=== PATIENT | male | born 1955 | race Caucasian/White ===

== ENCOUNTER 2016-08-24 12:43 | Inpatient (IN) | payer OTHER ==
--- NOTE | 2016-08-23 14:28 | GHP ---
[f rep st] PREOP HISTORY AND PHYSICAL DATE OF ADMISSION: 08/24/2016 PROBLEM: Severe right hip degenerative osteoarthritis. HISTORY OF PRESENT ILLNESS: The patient is a 61-year-old male who will be admitted for a right tota l hip arthroplasty with Dr. Houston at the [facility] on August 24, 2016. The patient has had progressive right hip pain for 2 years. He now has both pain at night and during the day. It is painful with activities and his activities have become limited secondary to his right hip pain . He will use the ibuprofen on occasion, which has not worked as effectively as it has in the past. He has difficulties putting on his shoes and socks on the right side. He did some yoga therapy wi thout improvement. No previous cortisone injection or right hip surgery. Because of his progressiv e pain and recalcitrant response to conservative measures, the patient has elected to proceed with a right total hip arthroplasty. PAST MEDICAL HISTORY: Noncontributory. He has no history of DVT, PE, ME, CAD, hepatitis, or MRSA i nfection. CURRENT MEDICATIONS: Magnesium supplement, glucosamine/chondroitin sulfate supplement, and Advil. MEDICATION ALLERGIES: None. He believes he had an adverse reaction to Pentothal as a child. SOCIAL HISTORY: The patient is a nonsmoker. Occasional alcohol use. He is . 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 His activities include recumb ent biking and walking. FAMILY HISTORY: Noncontributory. PHYSICAL EXAMINATION: GENERAL: He is an otherwise healthy-appearing 61-year-old male. VITALS: Height 6 feet, 0 inches tall, weight 210 pounds, BMI 28.5. HEENT: Head is normocephalic, atraumatic. Eyes are PERRLA. Conjunctivae and sclerae are clear. M outh: He has good oral hygiene without any loose teeth. LUNGS: Clear. HEART: Regular rate and rhythm without murmurs, gallops, or rubs. EXTREMITIES: Pertinent findings are limited to the patient's right hip. He has full hip extension, 80 degrees of flexion, with a 20-degree external rotation flexion contracture. 0 degrees of development intern al rotation. He has about 15 degrees of external rotation and 20 degrees of abduction. DIAGNOSTIC IMAGING: Recent x-rays taken of the patient's right hip show severe [id number] arthrit is. He has large peripheral osteophyte formation and increased subchondral sclerosis. IMPRESSION ON ADMISSION: Severe right hip degenerative osteoarthritis. PLAN: The plan will be for the patient to undergo a right total hip arthroplasty with Dr. Houston at the [facility] on August 24, 2016. The surgery has been described to the patient inc luding the risks, benefits, and expectations. He understands the risk of sciatic nerve injury, infe ction, hip dislocation, and/or leg length inequality. He also understands the possible need for fut ure revision surgery. All his questions have been answered and he consents to surgery here in the o ffice today. Copy requested to: Dr. Vivien Perez /[id number]/MODL
[2016-08-24] MEDS ORDERED: LIDOCAINE 1% 2 ML INJ ONE (13:21)
[2016-08-24] MEDS ORDERED: CHLORHEXIDINE GLUC HIBICLENS 118 ML BTL TP ONE (14:00)
[2016-08-24] MEDS ORDERED: ACETAMINOPHEN 325 MG TAB PO ONE (14:00)
[2016-08-24] MEDS ORDERED: POVIDONE-IODINE 20 ML in SODIUM CL IRRIG SOLUTION 500 ML IRR ONE (14:00)
[2016-08-24] MEDS ORDERED: TRANEXAMIC ACID IV ONE (14:00)
[2016-08-24] MEDS ORDERED: CEFAZOLIN 2 GM/DEXTR 100 ML IV ONE (14:00)
[2016-08-24] MEDS ORDERED: NS IV ONE (14:00)
[2016-08-24] MEDS ORDERED: DEXAMETHASONE 4 MG/ML VIAL IVP ONE (14:00)
[2016-08-24] MEDS ORDERED: FAMOTIDINE 20 MG TAB PO ONE (14:00)
[2016-08-24] MEDS ORDERED: ROPI/epiNEPH/KETOROLAC JOINT COCKTAIL IU ONE (14:00)
--- NOTE | 2016-08-24 14:11 | PDHPUP ---
History & Physical Update H&P update statement: This history and physical update is based on an assessment of the patient which was completed after admission or registration (within 24 hours), but prior to the surgery/procedure. H&P update: H&P reviewed & patient examined, no change in patient's condition since H&P completed
[2016-08-24] MEDS ORDERED: LR 1,000 ML IV ONE (14:20)
[2016-08-24] MEDS ORDERED: ceFAZolin 1 GM/5 ML SYR ONE (14:27)
[2016-08-24] MEDS ORDERED: MIDAZOLAM 2 MG/2 ML VIAL IVP ONE ×2 (14:49→14:53)
--- NOTE | 2016-08-24 14:49 | PDANEPAE ---
ANE Past Medical History Past Medical History: 61 year old with right hip arthritis for right JULIAN Pt reports one episodeof "global amnesia" in July 2015. Neuro work up negative. Ripley to be stress induced - Cardiovascular History Hx Hypertension: No Hx Arrhythmias: No Hx Chest Pain: No Hx Coronary Artery / Peripheral Vascular Disease: No Hx CHF / Valvular Disease: No Hx Palpitations: No - Pulmonary History Hx COPD: No Hx Asthma/Reactive Airway Disease: No Hx Recent Upper Respiratory Infection: No Hx Oxygen in Use at Home: No - Neurologic History Hx Cerebrovascular Accident: No Hx Seizures: No Hx Dementia: No - Endocrine History Hx Diabetes: No - Renal History Hx Renal Disorders: No - Liver History Hx Hepatic Disorders: No - Neurological & Psychiatric Hx Hx Neurological and Psychiatric Disorders: No - Cancer History Hx Cancer: No - Congenital Disorder History Hx Congenital Disorders: No - GI History Hx Gastrointestinal Disorders: No - Chronic Pain History Chronic Pain: Yes (RT HIP) ANE Review of Systems Review of systems is: negative - Exercise capacity METS (RN): 4 METS ANE Patient History - Allergies Allergies/Adverse Reactions: wheat Allergy (Verified 08/20/16 14:26) - Home Medications Home Medications: Herbals/Supplements -Info Only 1 ea PO DAILY 07/30/15 [Last Taken Unknown] Ibuprofen [Motrin (*)] 200 mg PO DAILY PRN 08/20/16 [Last Taken Unknown] - NPO status NPO Since - Liquids (Date): 08/24/16 NPO Since - Liquids (Time): 11:30 NPO Since - Solids (Date): 08/23/16 NPO Since - Solids (Time): 20:00 - Smoking Hx Smoking Status: Never smoked - Family Anes Hx Family Hx Anesthesia Complications: NEG ANE Labs/Vital Signs - Vital Signs Blood Pressure: 114/84 Heart Rate: 65 Respiratory Rate: 14 O2 Sat (%): 96 Height: 182.88 cm Weight: 95.254 kg ANE Physical Exam - Airway Mallampati Score: Class 1 Mouth exam: normal dental/mouth exam - Pulmonary Pulmonary: no respiratory distress - Cardiovascular Cardiovascular: regular rate and rhythym - ASA Status ASA Status: II ANE Anesthesia Plan Anesthesia Plan: spinal
[2016-08-24] MEDS ORDERED: MIDAZOLAM 2 MG/2 ML VIAL ONE (14:54)
[2016-08-24] MEDS ORDERED: fentaNYL 100 MCG/2 ML INJ ONE (15:19)
[2016-08-24] MEDS ORDERED: PROPOFOL/EMULSION 500 MG/50 ML BOTTLE IV ONE ×2 (15:19→16:22)
[2016-08-24] MEDS ORDERED: NALOXONE HCL 0.4 MG/ML INJ IVP PRN (16:32)
[2016-08-24] MEDS ORDERED: PROMETHAZINE HCL 25 MG/ML INJ IVP PRN ×2 (16:32→17:02)
[2016-08-24] MEDS ORDERED: fentaNYL 100 MCG/2 ML INJ IVP PRN (16:32)
[2016-08-24] MEDS ORDERED: ONDANSETRON 4 MG/2 ML VIAL IVP PRN ×2 (16:32→17:02)
--- NOTE | 2016-08-24 16:51 | POSTOPPROG ---
Post Op Note Date of Operation: 08/24/16 Surgeon: Allen Houston Bonsai Tender: Sandra/Madhu Anesthesiologist: Warm Anesthesia: IV Sedation, Spinal Post-op Diagnosis: left hip arthritis Procedure: L JULIAN Inf/Abcess present in the surg proc area at time of surgery?: No EBL: 100-500
[2016-08-24] MEDS ORDERED: PHARMACY PAIN CONSULT 1 EA MISC PRN (17:02)
[2016-08-24] MEDS ORDERED: MAGNESIUM HYDROXIDE 30 ML UDCUP PO PRN (17:02)
[2016-08-24] MEDS ORDERED: LACTULOSE 20 GM/30 ML UDCUP PO PRN (17:02)
[2016-08-24] MEDS ORDERED: NS 500 ML IV PRN (17:02)
[2016-08-24] MEDS ORDERED: KETOROLAC 30 MG/1 ML SDV IVP PRN (17:02)
[2016-08-24] MEDS ORDERED: TEMAZEPAM 15 MG CAP PO PRN (17:02)
[2016-08-24] MEDS ORDERED: BISACODYL 10 MG SUPP PR PRN (17:02)
[2016-08-24] MEDS ORDERED: diphenhydrAMINE 25 MG CAP PO PRN (17:02)
[2016-08-24] MEDS ORDERED: ONDANSETRON DISINTEGRATING 4 MG TAB PO PRN (17:02)
[2016-08-24] MEDS ORDERED: CYCLOBENZAPRINE 10 MG TAB PO PRN (17:02)
[2016-08-24] MEDS ORDERED: METOCLOPRAMIDE 10 MG/2 ML VIAL IVP PRN (17:02)
[2016-08-24] MEDS ORDERED: DIPHENOXYLATE/ATROPINE LOMOTIL 1 TAB PO PRN (17:02)
[2016-08-24] MEDS ORDERED: PROMETHAZINE HCL 25 MG SUPPR PR PRN (17:02)
[2016-08-24] MEDS ORDERED: POLYETHYLENE GLYCOL 3350 17 GM PKT PO PRN (17:02)
[2016-08-24] MEDS ORDERED: traMADol 50 MG TAB PO PRN (17:02)
--- NOTE | 2016-08-24 17:09 | POSTANESTH ---
Post Anesthetic Evaluation Cardiovascular Status: Normal, Stable Respiratory Status: Normal, Stable Level of Consciousness/Mental Status: Can Participate in Eval, Alert and Oriented Pain Control: Adequate, Prn Tx Ordered Nausea/Vomiting Control: Adequate, Prn Tx Ordered Complications Possibly Related to Anesthesia: None Noted Notes: Spinal tolerated well
--- NOTE | 2016-08-24 17:16 | POSTOPPROG ---
Post Op Note Date of Operation: 08/24/16 Surgeon: Allen Houston Pre-op Diagnosis: R hip arthritis Post-op Diagnosis: R hip arthritis Procedure: R JULIAN Inf/Abcess present in the surg proc area at time of surgery?: No
[2016-08-24] MEDS ORDERED: LR 1,000 ML IV SCH (17:30)
[2016-08-24] MEDS: ASPIRIN 325 MG TAB PO SCH (19:54)
[2016-08-24] MEDS: FAMOTIDINE 20 MG TAB PO SCH (19:55)
[2016-08-24] MEDS: ACETAMINOPHEN 325 MG TAB PO SCH ×2 (19:55→23:24)
[2016-08-24] MEDS: SENNOSIDES/DOCUSATE SODIUM TAB PO SCH (19:55)
[2016-08-24] MEDS: TRANEXAMIC ACID 650 MG TAB PO SCH (23:24)
[2016-08-24] MEDS: oxyCODONE IR 5 MG TAB PO PRN (23:25)
[2016-08-24] MEDS: ceFAZolin 2 GM/DEXTROSE 100 ML IV SCH (23:28)
[2016-08-25 00:13] VITALS: PULSE 68
--- NOTE | 2016-08-25 03:28 | GOP ---
[f rep st] OPERATIVE REPORT DATE OF OPERATION: 08/24/2016 SURGEON: Allen Houston MD PROSPECTING OBSERVER: Navi Flores [facility] Praveen Leung PA-C ANESTHESIA: Combination of Marcaine, spinal, and IV sedation by Dr. Zuly Montalvo. PREOPERATIVE DIAGNOSIS: Right hip severe degenerative arthritis. POSTOPERATIVE DIAGNOSIS: Right hip severe degenerative arthritis. PROCEDURE PERFORMED: Right total hip arthroplasty, ceramic femoral head on highly crosslinked polye thylene cup liner. FINDINGS: DESCRIPTION OF PROCEDURE: The patient was given 2 g of preoperative IV Ancef within 60 minutes of s urgery. He was also given IV tranexamic acid at a dose of 20 mg/kg. He was placed on the operating room table and given spinal anesthesia with Marcaine by Dr. Montalvo. He was then placed supine and gi vikki IV sedation. A Hardy catheter was not used. He wore a ZULY stocking and SCD on the nonoperative leg. He was rolled to the left lateral decubitus position. The position was secured with the pegb oard table attachment. An axillary roll was used, and all pressure points were carefully padded. I was careful to lock his pelvis in a vertical position. His perineum was isolated with plastic adhe sive drapes. His right hip and right lower extremity were prepped with ChloraPrep. They were drape d free using sterile sheets, stockinette, and Ioban plastic drapes. The World Health Organization timeout was performed to verify the correct surgical side and the jai [facility] patient identity. The Amelia timeout was also performed. I made a 6-inch straight oblique posterolateral hip skin incision. The subcutaneous tissues were sh arply divided, and hemostasis was obtained using electrocautery. The fascia john was identified and split along the axis of its fibers. I then curved posteriorly and proximally, split the fascia of the gluteus nicanor and bluntly split the muscle fibers in line with their orientation. The Charnle y self-retaining retractor was inserted. His sciatic nerve was located, partially exposed, and prot ected throughout the procedure. The external rotators and the posterior hip capsule were divided as separate layers at the base of the femoral neck, tagged, and reflected posteriorly. A smooth 1/8-i [facility] Steinmann pin was inserted vertically into the ilium, superior to the acetabulum. A 1/8-inch dr ill bit was inserted vertically into the greater trochanter and parallel to the first pin. The dist ance between the 2 was measured for leg length reference. His femoral head was dislocated posterior ly. Very severe degenerative changes were present on the femoral head. The femoral neck was osteot omized at the appropriate level and inclination. He had very extensive osteophyte formation around the periphery of his acetabulum. I was careful to preserve all the posterior capsule and most of the anterior capsule. The remnant o f his damaged labrum was excised. Much of the labrum was calcified. I prepared the femur first. This allowed me to board machine set up operator the amount of natural femoral neck anteversion . This, in turn, allowed me to later determine the correct amount of cup anteversion. He had appro ximately 15 degrees of natural femoral neck anteversion. The canal was opened laterally with a box chisel. I hand broached sequentially using the Accolade II broach system up to a size 7. I used a size 7 broach as a trial stem. I was careful to lateralize adequately. Appropriate retractors were inserted to expose the acetabulum. The acetabulum was reamed sequential ly up to 55 mm. I selected a 56 mm Burns Tritanium solid-backed hemispherical shell. This was ta pped securely into place at the proper degree of inclination and anteversion. I used the transverse acetabular ligament and other acetabular bony landmarks to help me properly orient the cup. He had large osteophytes posteriorly, inferiorly, and superiorly. These were removed with osteotome and r ongeur. I performed a series of trial reductions to determine length and stability. I concluded that the si ze 7 stem which had a 37 mm neck length with a 36 mm head and a 0 neck length on the head along with the trial 0-degree liner gave me the proper combination of appropriate length and good anterior and posterior stability. I was using a high offset stem because this mirrored his preoperative anatomy . The 0-degree Burns X3 highly crosslinked polyethylene liner was inserted and tapped securely into place. I selected the Malia Accolade II stem in a size 7 with a high offset. This was inserted p ress-fit and was very tight. I did 1 final trial reduction and concluded that the 36 mm head with a 0 neck length was the proper combination. The Burns Biolox Delta ceramic head with an outside di ameter of 36 mm and a neck length of 0 mm was tapped securely onto the clean trunnion. The acetabul um was irrigated, cleaned, and the hip was reduced 1 final time. He had excellent anterior and post erior stability and appropriate lengthening. He was 6 or 7 mm short preoperatively, and I was inten tionally lengthening him. 40 mL of the joint anesthetic cocktail were injected into the capsule, the deep musculature, and the subcutaneous tissues around the skin edges. The joint was thoroughly irrigated 1 final time with a dilute Betadine solution. His sciatic nerve was reinspected and looked unharmed. The external rotators and the posterior hip capsule were repaired in separate layers with #2 FiberWi re sutures through drill holes in the greater trochanter. This provided a strong posterior capsular and external rotator repair. The fascia john was closed first with 2 [id number] #2 FiberWire sutures, followed by a running #2 barbed Ethicon Stratafix PDO suture. The subcutaneous tissues wer e closed with a running 0 barbed Ethicon Stratafix Monoderm suture. The skin was closed with a runn ing 3-0 barbed Ethicon Stratafix Monoderm subcuticular suture. The skin edges were reapproximated a nd sealed with Dermabond glue. The wound was covered with a strip of Telfa, and everything was held in place with a piece of clear plastic Tegaderm. A long-leg ZULY stocking and SCD were applied to his right lower extremity. He wore a stocking and S CD on the opposite leg during the procedure. An abduction pillow was placed between his knees. He was awakened from anesthesia and rolled to the supine position on his [facility]. He was taken to PACU in satisfactory condition. There were no recognized intraoperative complications. The estimated blood loss was about 400 mL. The sponge and needle count were correct on 2 occasions. I used a Malia Tritanium hemispherical solid-backed acetabular shell with an outside diameter of 5 6 mm. The liner was a Malia X3 0-degree highly crosslinked liner with an inside diameter of 36 mm . The femoral component was a press-fit high offset Burns Accolade II stem in a size 7. The femo ral head was a Malia Biolox Delta ceramic head with a 0 neck length and a 36 mm outside diameter. Navi Flores and Keenan Leung acted as first assistants. Their assistance was a medical necessit y. Copy requested to: Dr. Vivien Perez /[id number]/MODL
[2016-08-25 04:31] VITALS: O2SAT 95
[2016-08-25] MEDS: TRANEXAMIC ACID 650 MG TAB PO SCH (05:26)
[2016-08-25] MEDS: ceFAZolin 2 GM/DEXTROSE 100 ML IV SCH (05:26)
[2016-08-25] MEDS: ACETAMINOPHEN 325 MG TAB PO SCH (05:27)
[2016-08-25 05:40] LABS: HEMATOCRIT 40.1 % (40.0-51.0); HEMOGLOBIN 14.1 g/dL (13.7-17.5)
[2016-08-25] MEDS: oxyCODONE IR 5 MG TAB PO PRN ×2 (06:06→09:20)
[2016-08-25 07:31] VITALS: BP 104/68; RESP 15; TEMP 97.8
[2016-08-25] MEDS: SENNOSIDES/DOCUSATE SODIUM TAB PO SCH (08:28)
[2016-08-25] MEDS: FAMOTIDINE 20 MG TAB PO SCH (08:28)
[2016-08-25] MEDS: ASPIRIN 325 MG TAB PO SCH (08:29)
--- NOTE | 2016-08-25 09:40 | SOAPPROG ---
SOAP Progress Note Assessment/Plan: Assessment: Afebrile. Mild pain. Up and walking. H/H is good. Sciatic nerve intact. Dsg is dry. Films look good. Plan:Up with PT. DC later today. 08/25/16 09:40 Objective: Vital Signs Temp Pulse Resp BP Pulse Ox 36.6 C 68 15 104/68 95 08/25/16 07:30 08/25/16 07:30 08/25/16 07:30 08/25/16 07:30 08/25/16 07:30 Laboratory Results 08/25/16 04:18 08/24/16 08/25/16 08/26/16 05:59 05:59 05:59 Intake Total 2750 Output Total 2350 Balance 400 ICD10 Worksheet Patient Problems: Problems Problem Status Onset Osteoarthritis of right hip Acute Confusion Acute Transient global amnesia Acute
--- NOTE | 2016-08-25 10:14 | GDS ---
[f rep st] DISCHARGE SUMMARY PREOP DIAGNOSIS: Right hip degenerative arthritis. DISCHARGE DIAGNOSES: Right hip degenerative arthritis. OPERATION PERFORMED: August 24, 2016, a right total hip arthroplasty, ceramic femoral head on highly cross-linked polyethylene cup liner. POSTOPERATIVE COMPLICATIONS: None. CONDITION ON DISCHARGE: Improved. DESCRIPTION OF HOSPITAL COURSE: The patient was admitted to the hospital on the morning of surgery. The same day, under a combination of Marcaine spinal anesthesia and IV sedation, he underwent a ri ght total hip arthroplasty. Postoperatively, he was treated with multimodal DVT prophylaxis, including aspirin. On the first po stoperative day his hemoglobin and hematocrit were 14.1 and 40.1. He was seen by Physical Therapy a nd made good progress with ambulation and stairs. By the time of discharge, he was afebrile, his wo und was clean and dry, and he was independent walking. DISPOSITION: The patient discharged to his home. He will go to outpatient physical therapy. Grecia nudaniele aspirin 325 mg p.o. daily for 21 days. Use an abduction pillow in bed for 3 weeks[address] Use ZULY sto ckings for 1 week. He has prescriptions for oxycodone and tramadol for pain control. I will see daxa bell back in the office on 09/13/2016. If there any problems, he is to call me at the office. Copy requested to: Vivien Perez /[id number]/MODL
== END 2016-08-25 12:49 | disposition home or self-care (01) | DRG 470 ==
LOC: F3N 12:43
PROVIDERS: ADMIT Orthopaedic Surgery; ATTEND Orthopaedic Surgery
PROC: 0SR904Z Replacement of Right Hip Joint with Ceramic on Polyethylene Synthetic Substitute, Open Approach (ICD-10-PCS; principal; 2016-08-24 14:45)
DX: M16.11 Unilateral primary osteoarthritis, right hip (principal)
CPT/HCPCS: 97161-GP; 97165-GO; J0171; J0690; J1100; J1885; J2250; J2704; J2795; J3010